=== PATIENT | female | born 1985 | race Caucasian/White ===

== ENCOUNTER 2022-09-09 01:15 | Inpatient (IN) | payer OTHER ==
[2022-09-09 02:15] VITALS: BMI 28.9
[2022-09-09] MEDS: Ondansetron PF 4 MG/2 ML Vial IVP PRN ×2 (03:30→07:36)
[2022-09-09] MEDS ORDERED: Morphine 4 MG/ML VIAL SLOW IVP SCH (03:30)
[2022-09-09] MEDS ORDERED: Lactated Ringer's 1,000 ML IV SCH (04:00)
[2022-09-09] MEDS ORDERED: Morphine 4 MG/ML VIAL SLOW IVP PRN (04:09)
[2022-09-09 08:20] VITALS: BP 90/50; TEMP 98.2
[2022-09-09] MEDS ORDERED: HYDROcodone/Acetaminophen 5/325 mg Tablet PO PRN (09:54)
[2022-09-09] MEDS ORDERED: Ondansetron ODT 4 MG TAB PO SCH (12:30)
== END 2022-09-09 12:40 | disposition home or self-care (01) | DRG 761 ==
LOC: CSHPP 01:15
PROVIDERS: ADMIT Obstetrics & Gynecology; ATTEND Obstetrics & Gynecology
DX: N83.202 Unspecified ovarian cyst, left side (principal); Z88.8 Allergy status to other drugs, medicaments and biological substances; Z87.442 Personal history of urinary calculi; Z86.16 Personal history of COVID-19; Z90.49 Acquired absence of other specified parts of digestive tract; Z87.891 Personal history of nicotine dependence; Z87.440 Personal history of urinary (tract) infections
CPT/HCPCS: J2270; J2405; J7120; Q0162